=== PATIENT | male | born 1975 | race Caucasian/White ===

== ENCOUNTER 2022-05-12 07:07 | Outpatient (CLI) | payer BC | END 2022-05-12 07:08 | disposition home or self-care (01) | LOC: CSHLAB 07:07 | PROVIDERS: ATTEND Family Medicine | DX: Z20.822 Contact with and (suspected) exposure to COVID-19 (principal) | CPT/HCPCS: 87811 ==

== ENCOUNTER 2022-05-15 07:35 | Outpatient (CLI) | payer BC | END 2022-05-15 07:36 | disposition home or self-care (01) | LOC: CSHCP 07:35 | PROVIDERS: ATTEND Family Medicine | DX: R05.3 Chronic cough (principal); R06.02 Shortness of breath | CPT/HCPCS: 94010; 94726; 94729; 94760 ==

== ENCOUNTER → 2022-05-17 | Day surgery (SDC) | payer BC ==
[~2022-05-17] MED LIST: Albuterol Sulfate 2.5 mg/3 ml Neb NEB SCH; Methacholine Chloride KIT IH SCH; Sodium Chloride For Inhalation 0.9% 3 ML NEB NEB SCH
== END ==
LOC: CSHCP 07:15
PROVIDERS: ATTEND Family Medicine
DX: R05.9 Cough, unspecified (principal); R06.09 Other forms of dyspnea; R09.89 Other specified symptoms and signs involving the circulatory and respiratory systems; R07.9 Chest pain, unspecified
CPT/HCPCS: 94010; 94070; 94760; J7611; J7674

== ENCOUNTER 2022-09-13 12:37 | Outpatient (CLI) | payer BC | END 2022-09-13 12:38 | disposition home or self-care (01) | LOC: CSHULT 12:37 | PROVIDERS: ATTEND Internal Medicine | DX: R09.89 Other specified symptoms and signs involving the circulatory and respiratory systems (principal); I51.9 Heart disease, unspecified | CPT/HCPCS: 93306; 94618 ==

== ENCOUNTER 2024-08-08 10:53 | Outpatient (CLI) | payer BC | END 2024-08-08 10:54 | disposition home or self-care (01) | LOC: CSHSLEEP 10:53 | PROVIDERS: ATTEND Family Medicine | DX: G47.33 Obstructive sleep apnea (adult) (pediatric) (principal); R53.83 Other fatigue; R41.89 Other symptoms and signs involving cognitive functions and awareness; E66.9 Obesity, unspecified; Z68.34 Body mass index [BMI] 34.0-34.9, adult; I10 Essential (primary) hypertension; R09.02 Hypoxemia | CPT/HCPCS: 95810 ==

== ENCOUNTER 2024-08-28 09:14 | Outpatient (CLI) | payer BC, OTHER | END 2024-08-28 09:15 | disposition home or self-care (01) | LOC: CSHSLEEP 09:14 | PROVIDERS: ATTEND Family Medicine | DX: G47.33 Obstructive sleep apnea (adult) (pediatric) (principal); R53.83 Other fatigue; R41.89 Other symptoms and signs involving cognitive functions and awareness; F41.9 Anxiety disorder, unspecified; E66.9 Obesity, unspecified; Z68.34 Body mass index [BMI] 34.0-34.9, adult; I10 Essential (primary) hypertension; R09.02 Hypoxemia | CPT/HCPCS: 95811 ==